=== PATIENT | male | born 1980 | race Caucasian/White ===

== ENCOUNTER 2022-06-26 14:37 | Observation (INO) | payer OTHER ==
[~2022-06-26] VITALS: Ht 172.7 cm; Wt 69.3 kg
[2022-06-26 15:12] LABS: COLLECTION METHOD CLEAN CATCH
[2022-06-26 15:16] LABS: SQUAMOUS EPITHELIAL None Seen /hpf (0-10); URINE BACTERIA None Seen /hpf (NONE SEEN)
[2022-06-26 15:24] LABS: PH 5.5 (5-8); URINE APPEARANCE Clear (CLEAR/HAZY); URINE BLOOD 2+ (NEGATIVE); URINE COLOR Yellow (YELLOW); URINE GLUCOSE Negative (NEGATIVE); URINE KETONE Negative (NEGATIVE); URINE NITRATE Negative (NEGATIVE); URINE PROTEIN(semi-quant) TRACE (NEGATIVE); URINE UROBILINOGEN 0.2 (NEGATIVE)
[2022-06-26 15:55] LABS: BASO % 0.3 % (0.0-2.0); EOS # 0.1 K/mm3 (0.0-0.7); GRAN # 8.9 K/mm3 (1.4-6.5); GRAN % 72.1 % (42.2-75.2); HEMATOCRIT 41.3 % (42.0-52.0); HEMOGLOBIN 13.8 g/dl (13.5-18.0); LYMPH # 1.7 K/mm3 (1.2-3.4); LYMPH % 13.9 % (20.0-51.0); MEAN CELL VOLUME 90 fl (80.0-100.0); MEAN CORPUSCULAR HEMOGLOBIN 30 pg (27-31); MEAN CORPUSCULAR HGB CONC 33 g/dl (33.0-37.0); MEAN PLATELET VOLUME 9.3 fl (7.4-10.4); MONO # 1.5 K/mm3 (0.1-0.6); PLATELET COUNT 288 K/mm3 (130-400); RED BLOOD COUNT 4.59 M/mm3 (4.20-5.60); REDCELL DISTRIBUTION WIDTH-CV 12.2 % (11.5-14.5)
[2022-06-26 16:16] LABS: BILIRUBIN,TOTAL 0.3 mg/dL (0.2-1.2); C-REACTIVE PROTEIN 9.12 mg/dL (0.00-0.50); CREATININE, serum 0.83 mg/dL (0.72-1.25); POTASSIUM 4.2 mmol/L (3.5-4.5); TOTAL PROTEIN 7.1 gm/dL (6.2-8.1)
[2022-06-26] MEDS ORDERED: PERCOCET 325 MG1 TA2 PO (18:34)
[2022-06-26] MEDS ORDERED: BACTRIM DS 8001 TAB PO (18:36)
--- NOTE | 2022-06-26 18:54 | NUR ---
remains in surgery, report received from ED given to TAB Paredes
[2022-06-26 19:15] VITALS: BP 133/71; PULSE 82; TEMP 98
--- NOTE | 2022-06-26 19:15 | NUR ---
pt admitted to room from pacu. pt a&ox4, rates pain a 3/. vss. dressing is cdi. tolerating po. no needs at this time. admission assessment complete. call light in reach.
[2022-06-26 19:26] VITALS: TEMP 98
[2022-06-26 19:30] VITALS: BP 133/76; PULSE 86
--- NOTE | 2022-06-26 19:37 | NUR ---
called dr blanco to get home med rx of percocet order to send home w pt since pharmacy will be closed.
[2022-06-26 19:45] VITALS: BP 141/66; PULSE 85
[2022-06-26 20:00] VITALS: BP 142/83; PULSE 85
--- NOTE | 2022-06-26 21:04 | NUR ---
pt reports pain is tolerable. pt has met discharge criteria. discharge instructions given to pt. IV discontinued. pt left via wheelchair w .
--- NOTE | 2022-06-26 21:06 | NUR ---
pt given home pack of percocet
== END 2022-06-26 21:00 | disposition home or self-care (01) ==
LOC: COL.ER 14:37 → SURG 16:21
PROVIDERS: Nurse Practitioner; ADMIT Urology
DX: N45.3 Epididymo-orchitis (principal); N45.2 Orchitis; N44.00 Torsion of testis, unspecified; R56.9 Unspecified convulsions; F17.210 Nicotine dependence, cigarettes, uncomplicated; Z28.310 Unvaccinated for COVID-19
CPT/HCPCS: G0378; J0330; J0690; J1100; J2270; J2405; J2704; J3010; J7030